=== PATIENT | female | born 2000 | race Caucasian/White ===

== ENCOUNTER 2023-08-25 13:03 | Emergency (ER) | payer MEDICAID ==
[~2023-08-25] VITALS: Ht 167.6 cm; Wt 72.6 kg
[2023-08-25 13:35] VITALS: BP 104/65; PULSE 84; RESP 18; TEMP 97; O2SAT 98
[2023-08-25] MEDS ORDERED: ALBU0.0912 IH (14:05)
[2023-08-25] MEDS ORDERED: PRON INH (14:05)
== END 2023-08-25 14:10 | disposition home or self-care (01) ==
LOC: MED 13:03
DX: J45.909 Unspecified asthma, uncomplicated (principal); Z76.0 Encounter for issue of repeat prescription
CPT/HCPCS: 99281

== ENCOUNTER 2024-01-31 21:52 | Emergency (ER) | payer MEDICAID, OTHER ==
[~2024-01-31] VITALS: Ht 154.9 cm; Wt 67.7 kg
[~2024-01-31 21:52] MED LIST: ALBU0.0912 IH; PRON INH
[2024-01-31 22:24] VITALS: BP 115/60; PULSE 67; RESP 18; TEMP 97.7; O2SAT 100
[2024-02-01] MEDS: KETOROLAC 60 MG/2 ML VIAL IM ONE (00:54)
== END 2024-02-01 00:56 | disposition home or self-care (01) ==
LOC: MED 21:52
DX: M79.10 Myalgia, unspecified site (principal); M54.9 Dorsalgia, unspecified; M54.2 Cervicalgia; R22.30 Localized swelling, mass and lump, unspecified upper limb; M79.603 Pain in arm, unspecified; J45.909 Unspecified asthma, uncomplicated; Z79.899 Other long term (current) drug therapy
CPT/HCPCS: 99281

== ENCOUNTER 2024-03-20 21:40 | Emergency (ER) | payer OTHER ==
[~2024-03-20] VITALS: Ht 154.9 cm; Wt 72.6 kg
[2024-03-20 21:55] VITALS: BP 106/68; PULSE 96; RESP 20; TEMP 97.5; O2SAT 100
[2024-03-20] MEDS: IBUPROFEN 600 MG TAB PO ONE (22:42)
[2024-03-20 22:48] LABS: BASOPHILS % (AUTO) 0.3 % (0.0-2.0); EOSINOPHILS # (AUTO) 0.1 K/uL (0-0.4); EOSINOPHILS % (AUTO) 0.4 % (0.0-4.0); HEMATOCRIT 34.1 % (36-48); HEMOGLOBIN 10.4 g/dL (12.0-16.0); LYMPHOCYTES # (AUTO) 2.1 K/uL (2.5-16.5); LYMPHOCYTES % (AUTO) 18.4 % (20.5-51.1); MEAN CORPUSCULAR HEMOGLOBIN 21 pg (27-31); MEAN CORPUSCULAR HGB CONC 31 g/dL (33-37); MEAN CORPUSCULAR VOLUME 68.9 fL (80-94); MONOCYTES # (AUTO) 0.4 K/uL (0.8-1.0); MONOCYTES % (AUTO) 3.4 % (1.7-9.3); NEUTROPHILS # (AUTO) 8.9 K/uL (1.8-7.7); NEUTROPHILS % (AUTO) 77.5 % (42.2-75.2); PLATELET COUNT (AUTO) 260 K/uL (140-450); RED BLOOD CELL COUNT(AUTO) 4.95 MIL/uL (4.20-5.40); RED CELL DISTRIBUTION WIDTH 17.7 % (11.6-13.7); WHITE BLOOD COUNT (AUTO) 11.5 K/uL (4.8-10.8)
[2024-03-20 22:49] LABS: APPEARANCE,URINE CLEAR (CLEAR); BILIRUBIN,URINE NEGATIVE (NEGATIVE); BLOOD, URINE NEGATIVE (NEGATIVE); COLOR,URINE YELLOW (YELLOW); LEUKOCYTE ESTERASE ,URINE NEGATIVE (NEGATIVE); NITRITE, URINE NEGATIVE (NEGATIVE); PH,URINE 7.5 (5.0-9.0); PROTEIN,URINE NEGATIVE (NEGATIVE); UGLUCOSE NEGATIVE (NEGATIVE); UROBILINOGEN,URINE 0.2 EU/dL (0.2 - 1)
[2024-03-20 23:19] LABS: ANION GAP 13.8 (8-16); CREATININE 0.7 mg/dL (0.6-1.3); POTASSIUM 3.8 mmol/L (3.5-5.1)
[2024-03-20 23:27] LABS: ALBUMIN 4.2 g/dL (3.4-5.0); BILIRUBIN,DIRECT 0.1 mg/dL (0.0-0.3); TOTAL BILIRUBIN 0.2 mg/dL (0.0-1.0); TOTAL PROTEIN, SERUM 7.9 g/dL (6.4-8.2)
[2024-03-20] MEDS ORDERED: IBUP-2213 PO (23:34)
[2024-03-20] MEDS ORDERED: DOXY-690 PO (23:34)
[2024-03-20 23:44] VITALS: BP 110/62; PULSE 82; RESP 16; TEMP 97.7; O2SAT 99
== END 2024-03-20 23:44 | disposition home or self-care (01) ==
LOC: MED 21:40
DX: N72 Inflammatory disease of cervix uteri (principal); E11.9 Type 2 diabetes mellitus without complications; J45.909 Unspecified asthma, uncomplicated; Z79.1 Long term (current) use of non-steroidal anti-inflammatories (NSAID); Z79.899 Other long term (current) drug therapy
CPT/HCPCS: 36415; 80048; 80076; 81003; 81025; 83690; 85025; 99283